=== PATIENT | male | born 1985 | race Caucasian/White ===

== ENCOUNTER 2023-01-25 17:59 | Emergency (ER) | payer OTHER ==
[2023-01-25 18:12] VITALS: BP 134/84; PULSE 101; RESP 18; TEMP 100.3; BMI 29.2
[2023-01-25] MEDS ORDERED: ALBUTEROL SO4 2.5/IPRATROPIUM 0.5 INH SOL 3 ML VIAL.NEB. NEB ONE (19:44)
[2023-01-25] MEDS ORDERED: ACETAMINOPHEN 500 MG TABLET (FP) PO ONE (20:03)
[2023-01-25] MEDS ORDERED: ACETAMINOPHEN 500 MG TABLET (FP) ONE ×2 (20:31→20:32)
[2023-01-25] MEDS ORDERED: OSELTAMIVIR PHOSPHATE 75 MG CAPSULE PO ONE (20:46)
[2023-01-25] MEDS ORDERED: OSELTAMIVIR PHOSPHATE 75 MG CAPSULE ONE (20:59)
== END 2023-01-25 21:02 | disposition home or self-care (01) ==
LOC: JERFT 17:59
PROC: 3E0F7GC Introduction of Other Therapeutic Substance into Respiratory Tract, Via Natural or Artificial Opening (ICD-10-PCS; principal; 2023-01-25)
DX: R50.9 Fever, unspecified (principal); R63.0 Anorexia; M79.10 Myalgia, unspecified site; J10.1 Influenza due to other identified influenza virus with other respiratory manifestations; J20.9 Acute bronchitis, unspecified; B34.9 Viral infection, unspecified; Z20.822 Contact with and (suspected) exposure to COVID-19
CPT/HCPCS: 0241U-QW; 71046-TC-FY; 99284-25

== ENCOUNTER 2023-02-17 17:06 | Emergency (ER) | payer OTHER ==
[2023-02-17 17:24] VITALS: BMI 27.8
[2023-02-17] MEDS ORDERED: morphine CARPU-JECT 2 MG/1 ML DISP.SYRIN IVPUSH ONE (17:59)
[2023-02-17] MEDS ORDERED: SODIUM CHLORIDE 0.9% 500 ML INFUS.BAG IV ONE (17:59)
[2023-02-17 18:42] LABS: BASO % 0.7 % (0-2.0); EOS % 2.3 % (0-4.5); HEMATOCRIT 49.7 % (35.4-49); HEMOGLOBIN 16.4 GM/dL (11.7-16.9); MCH 29.8 pg (25.7-33.7); MEAN CELL VOLUME 90.3 fl (80-96); MEAN PLT VOLUME 9.7 fl (7.5-11.1); PLATELET COUNT 221 10^3/uL (134-434); RDW 13.7 % (11.9-15.9); WHITE BLOOD COUNT 8.8 K/mm3 (4.0-10.0)
[2023-02-17 18:44] LABS: EPI CELLS 1 /uL (0-25.1); HYALINE CASTS 0 /uL (0-3.1); PH,URINE 6.5 (5.0-8.0); URINE APPEARANCE CLEAR; URINE BACTERIA 7 /uL (0-1359); URINE BILIRUBIN NEGATIVE (NEGATIVE); URINE COLOR YELLOW; URINE GLUCOSE (UA) NEGATIVE (NEGATIVE); URINE KETONE NEGATIVE (NEGATIVE); URINE LEUK ESTERASE NEGATIVE (NEGATIVE); URINE NITRITE NEGATIVE (NEGATIVE); URINE PROTEIN NEGATIVE (NEGATIVE); URINE RBC 59 /uL (0-23.9); URINE UROBILINOGEN 0.2 mg/dL (0.2-1.0); URINE WBC 3 /uL (0-25.8)
[2023-02-17 19:04] LABS: POTASSIUM 4.5 mmol/L (3.5-5.1)
[2023-02-17 19:05] LABS: CALCIUM 9.6 mg/dL (8.5-10.1)
[2023-02-17 19:06] LABS: ALBUMIN 3.7 g/dl (3.4-5.0)
[2023-02-17 19:09] LABS: CREATININE 1.2 mg/dL (0.55-1.3)
[2023-02-17 19:10] LABS: TOT PROT 7.7 g/dl (6.4-8.2)
[2023-02-17 19:11] LABS: BILIRUBIN,TOTAL 0.8 mg/dL (0.2-1)
[2023-02-17 19:21] LABS: BLOOD UREA NITROGEN 17.6 mg/dL (7-18)
[2023-02-17] MEDS ORDERED: TAMSULOSIN HCL 0.4 MG CAP PO ONE (20:31)
[2023-02-17] MEDS ORDERED: KETOROLAC TROMETHAMINE 30 MG/1 ML VIAL IVPUSH ONE (20:31)
[2023-02-17] MEDS ORDERED: KETOROLAC TROMETHAMINE 30 MG/1 ML VIAL ONE (20:34)
[2023-02-17] MEDS ORDERED: TAMSULOSIN HCL 0.4 MG CAP ONE (20:34)
[2023-02-17 20:42] VITALS: BP 123/87; PULSE 78; RESP 19; TEMP 98.3
== END 2023-02-17 21:33 | disposition home or self-care (01) ==
LOC: JER 17:06
PROC: 3E0333Z Introduction of Anti-inflammatory into Peripheral Vein, Percutaneous Approach (ICD-10-PCS; principal; 2023-02-17)
PROC: 3E033GC Introduction of Other Therapeutic Substance into Peripheral Vein, Percutaneous Approach (ICD-10-PCS; 2023-02-17)
DX: R10.9 Unspecified abdominal pain (principal); N20.0 Calculus of kidney; R30.0 Dysuria
CPT/HCPCS: 36415; 74176-TC; 80053; 81003; 83690; 85025; 86850; 86900; 86901; 87086; 99284-25

== ENCOUNTER 2023-04-27 16:56 | Emergency (ER) | payer OTHER ==
[2023-04-27 17:14] VITALS: BP 118/75; PULSE 73; RESP 18; TEMP 98.5
[2023-04-27] MEDS ORDERED: KETOROLAC TROMETHAMINE 30 MG/1 ML VIAL ONE (17:56)
[2023-04-27] MEDS ORDERED: LIDOCAINE 4% PATCH TP ONE (17:56)
[2023-04-27] MEDS ORDERED: diazePAM 5 MG TABLET ONE (17:56)
[2023-04-27 17:58] LABS: PH,URINE 6.5 (5.0-8.0); URINE APPEARANCE CLEAR; URINE BILIRUBIN NEGATIVE (NEGATIVE); URINE COLOR YELLOW; URINE GLUCOSE (UA) NEGATIVE (NEGATIVE); URINE KETONE TRACE (NEGATIVE); URINE LEUK ESTERASE NEGATIVE (NEGATIVE); URINE NITRITE NEGATIVE (NEGATIVE); URINE PROTEIN NEGATIVE (NEGATIVE); URINE UROBILINOGEN 0.2 mg/dL (0.2-1.0)
[2023-04-27] MEDS: LIDOCAINE 4% PATCH TP ONE (18:01)
[2023-04-27] MEDS: KETOROLAC TROMETHAMINE 30 MG/1 ML VIAL IM ONE (18:02)
[2023-04-27] MEDS: diazePAM 5 MG TABLET PO ONE (18:02)
[2023-04-27] MEDS ORDERED: LIDOCAINE PATCH REMOVAL MC SCH (22:00)
== END 2023-04-27 20:01 | disposition home or self-care (01) ==
LOC: JERFT 16:56
PROC: 3E0233Z Introduction of Anti-inflammatory into Muscle, Percutaneous Approach (ICD-10-PCS; principal; 2023-04-27)
DX: M54.50 Low back pain, unspecified (principal)
CPT/HCPCS: 74176-TC; 81003; 87086; 99284-25

== ENCOUNTER 2023-05-18 10:26 | Emergency (ER) | payer OTHER ==
[2023-05-18] MEDS ORDERED: KETOROLAC TROMETHAMINE 15 MG/ML VIAL IM ONE (10:31)
[2023-05-18 10:39] VITALS: BP 96/66; PULSE 67; RESP 17; TEMP 98.6; BMI 29.2
[2023-05-18] MEDS ORDERED: KETOROLAC TROMETHAMINE 15 MG/ML VIAL ONE (11:08)
[2023-05-18] MEDS: SODIUM CHLORIDE 0.9% 500 ML INFUS.BAG IV ONE (11:20)
[2023-05-18] MEDS: KETOROLAC TROMETHAMINE 15 MG/ML VIAL IVPUSH ONE (11:20)
[2023-05-18 11:24] LABS: BASO % 0.8 % (0-2.0); EOS % 1.7 % (0-4.5); HEMATOCRIT 49.9 % (35.4-49); HEMOGLOBIN 16.1 GM/dL (11.7-16.9); MCH 29.3 pg (25.7-33.7); MCHC 32.3 g/dl (32.0-35.9); MEAN CELL VOLUME 90.7 fl (80-96); MEAN PLT VOLUME 9.1 fl (7.5-11.1); MONO % 7.3 % (3.8-10.2); NEUT % 68.2 % (42.8-82.8); PLATELET COUNT 206 10^3/uL (134-434); RDW 13.5 % (11.9-15.9)
[2023-05-18 11:38] LABS: POTASSIUM 4.9 mmol/L (3.5-5.1)
[2023-05-18 11:40] LABS: ALBUMIN 3.6 g/dl (3.4-5.0); CALCIUM 9.2 mg/dL (8.5-10.1)
[2023-05-18 11:42] LABS: BLOOD UREA NITROGEN 15.9 mg/dL (7-18)
[2023-05-18 11:44] LABS: CREATININE 0.9 mg/dL (0.55-1.3)
[2023-05-18 11:45] LABS: BILIRUBIN,TOTAL 0.7 mg/dL (0.2-1); TOT PROT 6.9 g/dl (6.4-8.2)
[2023-05-18] MEDS ORDERED: CYCLOBENZAPRINE HCL 5 MG TABLET ONE (13:30)
[2023-05-18] MEDS ORDERED: ACETAMINOPHEN 500 MG TABLET (FP) ONE (13:31)
[2023-05-18] MEDS: CYCLOBENZAPRINE HCL 5 MG TABLET PO ONE (13:32)
[2023-05-18] MEDS: ACETAMINOPHEN 500 MG TABLET (FP) PO ONE (13:32)
== END 2023-05-18 13:40 | disposition home or self-care (01) ==
LOC: JER 10:26
PROC: 3E0303Z Introduction of Anti-inflammatory into Peripheral Vein, Open Approach (ICD-10-PCS; principal; 2023-05-18)
DX: R51.9 Headache, unspecified (principal)
CPT/HCPCS: 36415; 70450-TC; 80053; 85025; 99284-25